=== PATIENT | male | born 1985 | race African-American/Black ===

== ENCOUNTER 2022-10-18 15:39 | Emergency (ER) | payer OTHER ==
--- OUTSIDE RECORDS SUMMARY | 2022-10-18 15:42 | XMS REPORT | Continuity of Care Document ---
:1985 Author Organization [facility] t Address [address] [place] [address] Care Team Providers Name Role Phone PCP, PATIENT DOES NOT HAVE A Primary Care Physician Lashonda Marinelli RN Attending Clinician Unavailable ZONIA SCHILLING Attending Clinician Unavailable Tonie AMIN, Zonia Attending Clinician ZONIA SCHILLING Admitting Clinician Unavailable Zonia Schilling MD Admitting Clinician Payers Payer Name Policy Type Policy Number Effective Date Expiration Date S ource Problems Condition Condition Condition Status Onset Resolution Last Treating Co mments Source Name Details Category Date Date Treatment Clinician Date Obesity Obesity Disease Active Univers (BMI (BMI 2-02 ity of 30-39.9) 30-39.9) 00:00: [place] 00 Medical Branch Pneumonia Pneumonia Disease Active Uni vers due to due to 2-02 ity of Streptococ St[place]ococ [place] Allergies, Adverse Reactions, Alerts Allergy Allergy Status Severity Reaction(s) Onset Inactive Treating Comm ents Source Name Type Date Date Clinician NO KNOWN Drug Active Univers ALLERGIE Class ity of [facility] [place] [facility] Social History Social Habit Start Date Stop Date Quantity Comments Source History SDOH Social Unive rsity of [facility] Med ical Together Branch History SDOH Social Unive rsity of [facility] Branch History SDOH Social Unive rsity of [facility] Medical Membership Branch History SDOH Social Unive rsity of [facility] Medical Meetings Branch History of tobacco Passive smoker Un iversity of use [facility] Branch History SDOH 2022-10-15 2022-10-15 0 University o f Alcohol Std Drinks 00:00:00 00:00:00 [place] [facility] History SDOH 2022-10-15 2022-10-15 1 University o f Alcohol Binge 00:00:00 00:00:00 [place] [facility] History SDOH Social 2022-10-15 2022-10-15 5 Unive rsity of Connections Phone 00:00:00 00:00:00 [facility] edical Branch History SDOH Social 2022-10-15 2022-10-15 7 Unive rsity of Connections Living 00:00:00 00:00:00 [place] [facility] History SDOH 2022-10-15 2022-10-15 5 University o f Physical Activity 00:00:00 00:00:00 [facility] edical DPW Branch History SDOH 2022-10-15 2022-10-15 4 University o f Physical Activity 00:00:00 00:00:00 [facility] edical MPS Branch History SDOH 2022-10-15 2022-10-15 5 University o f Financial 00:00:00 00:00:00 [place] [facility] History SDOH Food 2022-10-15 2022-10-15 1 Univers ity of Worry 00:00:00 00:00:00 [place] [facility] History SDOH Food 2022-10-15 2022-10-15 1 Univers ity of Scarcity 00:00:00 00:00:00 [place] [facility] History SDOH 2022-10-15 2022-10-15 2 University o f Transport Med 00:00:00 00:00:00 [place] [facility] History SDOH 2022-10-15 2022-10-15 2 University o f Transport Non-Med 00:00:00 00:00:00 [facility] edical Branch Alcohol intake 2022-10-15 2022-10-15 Ex-drinker University of 00:00:00 00:00:00 (finding) [place] [facility] History SDOH 2022-10-15 2022-10-15 1 University o f Alcohol Frequency 00:00:00 00:00:00 [facility] edical Branch Exposure to 2022-10-04 2022-10-14 Not sure University of SARS-CoV-2 (event) 00:00:00 23:33:00 [facility] Tobacco use and 2022-10-14 2022-10-14 Smokeless Universit y of exposure 00:00:00 00:00:00 tobacco non-user [facility] Sex Ass[birth year] Universit y of 00:00:00 00:00:00 [facility] Smoking Status Start Date Stop Date Source Ex-smoker 2022-10-14 00:00:00 2022-10-14 00:00:00 [facility] Medications Ordered Filled Start Stop Current Ordering Indication Dosage Frequency Signature Comments Components Source Medication Medication Date Date Medication? Clinician (SIG) Name Name amLODIPine 2022- Yes [id number] 10mg Take 1 Univers 10 mg 10-17-08 tablet by ity of tablet 00:00: 05:59 mouth in [place] 00 :00 [facility] for 30 days. losartan 50 2022- Yes [id number] 50mg Take 1 Univers mg tablet 10-17-08 tablet by ity of 00:00: 05:59 mouth in [place] 00 :00 [facility] for 30 days. amLODIPine 2022- Yes [id number] 10mg Take 1 Univers 10 mg 10-17-08 tablet by ity of tablet 00:00: 05:59 mouth in [place] 00 :00 [facility] for 30 days. losartan 50 2022- Yes [id number] 50mg Take 1 Univers mg tablet 10-17-08 tablet by ity of 00:00: 05:59 mouth in [place] 00 :00 [facility] for 30 days. amLODIPine 2022- Yes [id number] 10mg Take 1 Univers 10 mg 10-17-08 tablet by ity of tablet 00:00: 05:59 mouth in [place] 00 :00 [facility] for 30 days. losartan 50 2022- Yes [id number] 50mg Take 1 Univers mg tablet 10-17-08 tablet by ity of 00:00: 05:59 mouth in [place] 00 :00 [facility] for 30 days. remdesivir 2022- Yes 100mg 100 mg, IV Univers 100 mg in 10-1608 Infusion, ity of NaCl 0.9% 22:00: 21:59 DAILY AT [facility] as (NS) 100 mL 00 :00 1600, 4 Medic al MINI-BAG doses, Branch First dose on [facility] 10/16/22 at 1600, Last dose on Tue10/19/22 at 1600, Administer over 60 Minutes, 100 mL
Is the patient mechanical ly ventilated ? NO amLODIPine Yes 10mg 10 mg, Unive rs (NORVASC) 2-04 Oral, ity of tablet 10 15:00: DAILY, [place] mg 00 First dose Medical (after Branch last modificati on) on [facility] 10/16/22 at 0900, Until Discontinu ed, Routine losartan Yes 50mg 50 mg, Univers (COZAAR) 2-04 Oral, ity of tablet 50 14:30: DAILY, [place] mg 00 First dose Medical on [facility] 10/16/22 at 0830, Until Discontinu ed, Routine acetaminoph Yes 650mg 650 mg, Un sherice en 2-04 Oral, ity of (TYLENOL) 14:28: Q6HPRN, [place] tablet 650 54 Starting Medic al mg on [facility] 10/16/22 at 0828, Until Discontinu ed, Routine, Pain (scale 1-3) ALBUTEROL Yes Inhale as Uni vers INHALE 2-04 needed. ity of 14:20: [address] ALBUTEROL Yes Inhale as Uni vers INHALE 2-04 needed. ity of 14:20: [address] ALBUTEROL 0 Yes Inhale as Uni vers INHALE 2-04 needed. ity of 14:20: [address] lactobacill 2022- Yes [id number] .5mg Take 1 Univers us 2- 02-15 tablet by ity of acidophilus 00:00: 05:59 [place] 00 :00 the Medical morning Branch and 1 tablet in the evening. Do all this for 10 days. lactobacill 0 2022- Yes [id number] .5mg Take 1 Univers us 2- 02-15 tablet by ity of acidophilus 00:00: 05:59 [place] 00 :00 the Medical morning Branch and 1 tablet in the evening. Do all this for 10 days. lactobacill 2022- Yes [id number] .5mg Take 1 Univers us 2- 02-15 tablet by ity of acidophilus 00:00: 05:59 [place] 00 :00 the Medical morning Branch and 1 tablet in the evening. Do all this for 10 days. levoFLOXaci 3-0 202- Yes [id number] 750mg Take 1 Univers n 2- 02-10 tablet by ity of (LEVAQUIN) 00:00: 05:59 mouth [place] 750 mg 00 :00 every 24 Medical tablet ([facility] ur) hours for 5 days. levoFLOXaci 202-0 202- Yes [id number] 750mg Take 1 Univers n 2- 02-10 tablet by ity of (LEVAQUIN) 00:00: 05:59 mouth [place] 750 mg 00 :00 every 24 Medical tablet ([facility] Branch ur) hours for 5 days. levoFLOXaci 2022-0 2022- Yes [id number] 750mg Take 1 Univers n 2-10 tablet by ity of (LEVAQUIN) 00:00: 05:59 mouth [place] 750 mg 00 :00 every 24 Medical tablet ([facility] Branch ur) hours for 5 days. amLODIPine 2022-0 2022- No 5mg 5 mg, Unive rs (NORVASC) 10-15- Oral, ity of tablet 5 mg 23:00: 22:38 ONCE, 1 [place] 00 [place] dose, On Medical Tue10/15/22 Branch at 1700, Routine hydralAZINE Yes 10mg 10 mg, Univ ers (APRESOLINE 2-03 Slow IV ity o f ) injection 22:06: Push, [place] 10 mg 32 Q6HPRN, Medical Starting Branch on Tue10/15/22 at 1606, Until Discontinu ed, STAT, DBP=>100; SBP=>160 amLODIPine 2022-0 2022- No 5mg 5 mg, Unive rs (NORVASC) 10-15-03 Oral, ity of tablet 5 mg 16:45: 22:05 DAILY, [place] 00 :41 First dose Medical on Tue Branch 10/15/22 at 1045, Until Discontinu ed, Routine codeine-gua 2022-0 Yes 10mL 10 mL, Univ ers ifenesin 2-03 Oral, ity of (ROBITUSSIN 16:38: Q6HPRN, [place] AC) 10-100 03 Starting Medic al mg/5 mL on Fri Branch oral 10/15/22 at solution 10 1038, mL Until Discontinu ed, Routine, Cough piperacilli 2023-0 2023- Yes 3.375g 3.375 g, Univers n-tazobacta 10-15-13 IV ity of m (ZOSYN) 16:00: 15:59 [place], [place] 3.375 g in 00 :00 Q8H ABX, Medic al NaCl 0.9% 30 doses, Branc h (NS) 50 mL First dose MINI-BAG on Tue10/15/22 at 1000, Last dose on Tue10/25/22 at 0200, Administer over 4 Hours, 50 mL
Reas on for Anti-Infec tive: Empiric Therapy for Suspected Infection< br>Empiric Therapy Site: Respirator y
Durat ion of therapy: 5 days lactobacill 2022-0 Yes .5mg 0.5 mg, Uni vers us 2-03 Oral, BID, ity of acidophilus 14:00: First dose [place] tablet 0.5 00 on Fri Medical mg 10/15/22 at Branch 0800, Until Discontinu ed, Routine docusate 2022-0 Yes 100mg 100 mg, Unive rs (COLACE) 2-03 Oral, BID, ity o f capsule 100 14:00: First dose [place] mg 00 on Fri Medical 10/15/22 at Branch 0800, Until Discontinu ed, Routine piperacilli 2023-0 2023- No 4.5g 4.5 g, IV Univers n-tazobacta 10-15- Piggyback, i ty of m (ZOSYN) 08:15: 10:37 ONCE, 1 [place] 4.5 g in 00 :15 dose, On Medical NaCl 0.9% [facility] 10/15/22 Bran ch (NS) 50 mL at 0215, MINI-BAG Administer over 30 Minutes, 50 mL
Reas on for Anti-Infec tive: Empiric Therapy for Suspected Infection< br>Empiric Therapy Site: Respirator y
Durat ion of therapy: 5 days ipratropium 3-0 Yes 3mL 3 mL, Unive rs -albuteroL 2-03 Inhalation ity of (DUONEB) 07:30: , QID, [place] 0.5 mg-3 00 First dose Medic al mg(2.5 mg on Fri Branch base)/3 mL 10/15/22 at nebulizer 0130, solution 3 Until mL Discontinu ed, Routine NaCl 0.9% 2022- No 1000mL at 100 Uni vers (NS) IV 203 02-03 mL/hr, IV ity of infusion 07:30: 17:55 Infusion, [place] 1,000 mL 00 :18 CONTINUOUS Medic al , Starting Branch on Tue10/15/22 at 0130, Until 10/15/22 at 1155, Routine ondansetron Yes 4mg 4 mg, Slow Univers (ZOFRAN 10-15 IV Push, ity of (PF)) 05:58: Q6HPRN, [place] injection 4 00 Starting Medi magnolia mg on A[place]e Branch 10/14/22 at 2358, Until Discontinu ed, Routine, Nausea and Vomiting (N/V) traMADOL 2022- No [id number] 100mg Take 2 Un sherice (ULTRAM) 50 12-17 tablets by i ty of mg tablet 00:00: 00:00 mouth [place] 00 :00 every 6 Medical (six) Branch hours as needed (severe pain, alternate with ibuprofen) . ibuprofen 2022- No [id number] 800mg Take 1 U nivers 800 mg 12-17 tablet by ity of tablet 00:00: 00:00 mouth [place] 00 :00 every 8 Medical (eight) Branch hours as needed for Pain (scale 1-3) or Pain (scale 4-6). ondansetron 2022- No [id number] 8mg Take 1 Univers (ZOFRAN 12-17 tablet by ity of ODT) 8 mg 00:00: 00:00 mouth [place] disintegrat 00 :00 every 8 Medic al ing tablet (eight) Branch hours as needed for Nausea and Vomiting (N/V). Immunizations Ordered Filled Immunization Date Status Comments [facility] e Immunization Name Name Remdesivir 2022-10-15 Completed [facility] 00:00:00 [facility] Remdesivir 2022-10-15 Completed [facility] 00:00:00 [facility] Remdesivir 2022-10-15 Completed [facility] 00:00:00 [facility] Vital Signs Vital Name Observation Time Observation Value Comments Source Heart rate 2022-10-16 18:00:00 88 /min [facility] Respiratory rate 2022-10-16 18:00:00 17 /min [facility] Oxygen saturation in 2022-10-16 18:00:00 95 /min [facility] Arterial blood by [facility] Pulse oximetry Branch Systolic blood 2022-10-16 17:46:00 149 mm[Hg] Univer sity of pressure [facility] Diastolic blood 2022-10-16 17:46:00 90 mm[Hg] [facility] Body temperature 2022-10-16 17:46:00 36.78 Dacia [facility] Body weight 2022-10-15 09:43:00 128.459 kg [facility] BMI 2022-10-15 09:43:00 39.50 kg/m2 [facility] Body height 2022-10-15 05:37:00 180.3 cm [facility] Procedures Procedure Date / Time Performing Clinician Source Performed XR CHEST 1 VW 2022-10-15 20:51:00 Leah Masters [facility] SODIUM, URINE RANDOM 2022-10-15 20:36:00 Zonia Schilling [facility] PROTEIN CREAT RATIO 2022-10-15 20:36:00 Zonia Schilling [facility] URINE RANDOM [facility] URINE DRUG (IMMUNOASSAY) 2022-10-15 20:36:00 Zonia Schilling [facility] SCREEN URINE CULTURE 2022-10-15 20:35:00 Zonia Schilling [facility] URINALYSIS 2022-10-15 20:35:00 Zonia Schilling [facility] SPUTUM CULTURE 2022-10-15 16:26:00 Zonia Schilling [facility] FREE T3 2022-10-15 16:23:00 Zonia Schilling [facility] BLOOD CULTURE SCREEN 2022-10-15 16:23:00 Zonia Schilling [facility] FREE T4 2022-10-15 16:23:00 Tonie [facility] PNEUMOCOCCAL ANTIGEN 2022-10-15 09:09:00 Tonie gui [facility] N-TERMINAL PRO-BNP 2022-10-15 08:58:00 Tonie [facility] PROCALCITONIN 2022-10-15 08:58:00 Tonie [facility] AC VBG + LACTIC ACID 2022-10-15 08:58:00 Tonie gui [facility] PHOSPHORUS 2022-10-15 08:58:00 Tonie [facility] LACTATE DEHYDROGENASE 2022-10-15 08:58:00 Tonie [facility] CREATINE KINASE 2022-10-15 08:58:00 Tonie [facility] MAGNESIUM 2022-10-15 08:58:00 Tonie [facility] FERRITIN SERUM 2022-10-15 08:58:00 Tonie [facility] C-REACTIVE PROTEIN 2022-10-15 08:58:00 Tonie [facility] TROPONIN I 2022-10-15 08:58:00 Tonie [facility] THYROID STIMULATING 2022-10-15 08:58:00 Tonie gui [facility] HORMONE [facility] COMP. METABOLIC PANEL 2022-10-15 08:58:00 Tonie [facility] ([id number]) [facility] LIPID PANEL 2022-10-15 08:58:00 Tonie [facility] ([id number])(TOTAL [facility] CHOLESTEROL, TRIGLYCERIDES, HDL) SEDIMENTATION RATE 2022-10-15 08:58:00 Tonie [facility] CBC WITH DIFF 2022-10-15 08:58:00 Tonie [facility] GLYCOSYLATED HEMOGLOBIN 2022-10-15 08:58:00 Tonie [facility] (A1C) [facility] Encounters Start End Encounter Admission Attending Care Care Encounter Source Date/Time Date/Time Type Type Clinicians Facility Department ID 2022-10-18 2022-10-18 Transition FEDE Aguero [id number] Univers 00:00:00 00:00:00 of Care Lashonda GUILLEN [id number] it y of YULI [id number] [facility] [id number] [facility] 403 Branch 2022-10-14 2022-10-16 Inpatient U TONIE [facility] [id number] Univers 22:57:00 13:50:00 ADNAN ity [facility] 2022-10-14 2022-10-16 [id number] Univers 22:57:00 13:50:00 Encounter Zonia GIBBS [id number] ity of [facility] [id number] [facility] [id number] [place] [id number] Branch Results Test Description Test Time Test Comments Results Result Comments Source SPUTUM CULTURE 2022-10-16 06:52:32 Test Item Value Reference Range Interpretation Comme nts SPUTUM CULTURE (test code = 622-1) Specimen cellular elements do not represent lower respiratory tract. Specimen rejected for routine bacterial culture. Suggest reorder and recollection. Gram stain (test code = 664-3) Numerous Epithelial cells present [facility] [id number] 18:59:20 Test Item Value Reference Range Interpretation Comments CRP (test code = 0323964369) 7.9 mg/dL <=0.8 H Lab Interpretation (test code = Abnormal 28725-7) [facility]2023-[facility] 17:56:26 Test Item Value Reference Range Interpretation Comments Procalcitonin (test 0.39 ng/mL <=0.07 H code = 6430015875) TRISTON (test code = TRISTON) INTERPRETATION OF PROCALCITONIN RESULTS IN ADULTS >= 18 YEARS OF AGE Initiation and discontinuation of antibiotics on patients with suspected or confirmed Lower Respiratory Tract Infection in Adults >= 18 years of age. + +-------- --------+ + -----+|Procalcitonin |Interpretation ?|Antibiotic ? ? |Considerations ? |ng/mL ? | ?|recommendation | ? + +-------- --------+ + -----+| <0.1 ? | Bacterial ? ? ?| Strongly ? ? ?| ? | ?| infection very | discouraged ? | Overruling: ? | ?| unlikely ? ? ? | ? | ? Clinically unstable ? ? ? + +-------- --------+ + ? High risk for adverse ? ? | <0.25 ?| Bacterial ? ? ?| Discouraged ? | ? outcome ? | ?| infection ? ? ?| ? | ? SEE IMPORTANT NOTE ?| ?| unlikely ? ? ? | ? | ? + +-------- --------+ + -----+| >=0.25 ? ? ? | Bacterial ? ? ?| Encouraged ? ?| ? | ?| infection ? ? ?| ? | ? | ?| likely ? | ? | Consider treatment failure ?+ +------- ---------+ -+ if levels does not decrease | >0.5 ? | Bacterial ? ? ?| Strongly ? ? ?| appropriately ? | ?| infection very | encouraged ? ?| ? | ?| likely ? | ? | ? + +-------- --------+ + -----+ Discontinuation of antibiotics in high-acuity patients with suspected or confirmed sepsis in Adults >= 18 years of age. + +-------- --------+ + -----+|Procalcitonin |Interpretation ?|Antibiotic ? ? |Considerations ? |ng/mL ? | ?|recommendation | ? + +-------- --------+ + -----+| <0.25 ?| Bacterial ? ? ?| Strongly ? ? ?| ? | ?| infection very | discouraged ? | Overruling: ? | ?| unlikely ? ? ? | ? | ? Clinically unstable ? ? ? + +-------- --------+ + ? High risk for adverse ? ? | <0.5 or drop | Bacterial ? ? ?| Discouraged ? | ? outcome ? | >80% from ? ?| infection ? ? ?| ? | ? SEE IMPORTANT NOTE ?| highest PCT ?| unlikely ? ? ? | ? | ? | level ?| ?| ? | ? + +-------- --------+ + -----+| >=0.5 ?| Bacterial ? ? ?| Encouraged ? ?| ? | ?| infection ? ? ?| ? | ? | ?| likely ? | ? | Consider treatment failure ?+ +------- ---------+ -+ if levels does not decrease | >1.0 ? | Bacterial ? ? ?| Strongly ? ? ?| appropriately ? | ?| infection very | encouraged ? ?| ? | ?| likely ? | ? | ? + +-------- --------+ + -----+ Percentage of drop of Procalcitonin calculation for Discontinuation of antibiotics in high-acuity patients with suspected or confirmed sepsis in Adults >= 18 years of age. ? Procalcitonin highest{}-Procalcitonin current{}Delta Procalcitonin = x100% ? Procalcitonin current {} IMPORTANT NOTE: Procalcitonin may be elevated without bacterial infection by physiologic stress related to trauma, gamez, chronic dialysis, metastatic cancer, surgery in the past seven days, malaria, some fungal infections, and some forms of vasculitis. The interpretation algorithm may not apply to patients with immunosuppression (equivalent of >10 mg of prednisone daily), HIV with CD4 cell count < 350 cells/mm3, active malignancy on systemic chemotherapy, solid organ transplant or hematopoietic stem cell transplantation, or hospital acquired pneumonia. Additionally, some clinical trials of procalcitonin have excluded patients with shock requiring vasopressor use, acute respiratory failure requiring mechanical ventilation, or those with known lung abscess/empyema. For further information please refer to:[email or web address] Lab Interpretation Abnormal (test code = 48648-5) [facility] [id number] 17:32:21 Test Item Value Reference Range Interpretation Comments FREE T4 (test code = 1.12 See_Comment [Autom ated message] [id number]) The system [employer] generated this result transmitted ref erence range: 0.78 - 2 .20 ng/dL:. The ref erence range was not u sed to interpret this result as normal/abnor mal. Lab Interpretation (test Normal code = 57939-7) [facility] [id number] 17:31:40 Test Item Value Reference Range Interpretation Comments FREE T3 (test code = 8790221370) 3.05 pg/mL 2.77-5.27 Lab Interpretation (test code = Normal 99112-9) [facility] ([id number])(TOTAL CHOLESTEROL, TRIGLYCERIDES, HDL)2022-10-15 12:26:36 Test Item Value Reference Range Interpretation Comments CHOL (test code = 1204666609) 131 mg/dL 120-200 HDL (test code = 4409398073) 40 mg/dL >=40 L HDLC RATIO (test code = 0739362460) 3.3 <=5.0 TRIG (test code = 9862424600) 90 mg/dL 30-170 LDL CHOL (test code = 83768-0) 73 mg/dL <=160 VLDL (test code = 9720165076) 18 mg/dL 5-60 Lab Interpretation (test code = Abnormal 82529-3) [facility] HospitalFERRITIN [id number] 11:58:14 Test Item Value Reference Range Interpretation Comments FERRITIN (test code = 326.0 ng/mL 18.0-464.0 5501631971) TRISTON (test code = TRISTON) Biotin has been reported to cause a negative bias, interpret results relative to patient's use of biotin. Lab Interpretation (test Normal code = 10243-0) [facility] Hospital[facility]YROID STIMULATING [id number] 11:54:12 Test Item Value Reference Range Interpretation Comments TSH (test code = 0.30 See_Comment L [Automated message] [id number]) The system [employer] generated this result transmitted ref erence range: 0.45 - 4 .70 mIU/L. The refe rence range was not u sed to interpret this result as normal/abnor mal. Lab Interpretation (test Abnormal code = 11340-0) [facility] [id number] 11:35:49 Test Item Value Reference Range Interpretation Comments TROPONIN I (test code = 0.005 ng/mL <=0.034 [id number]) TRISTON (test code = TRISTON) Reference (Normal) Range (defined by the 99th percentile reference limit): <= 0.034 ng/mL Note: Cardiac troponin begins to rise 3-4 hours after the onset of ischemia. Repeat in 4-6 hours if the sample was drawn within 3-4 hours of the onset of the symptom and found normal. Diagnosis of myocardial injury is made with acute changes in cTn concentrations with at least one serial sample above the 99th percentile upper reference limit (URL), taken together with the patient's clinical presentation. Biotin has been reported to cause a negative bias, interpret results relative to patient's use of biotin. Lab Interpretation Normal (test code = 74887-5) [facility]AL [id number] 11:32:32 Test Item Value Reference Range Interpretation Comments NT-proBNP (test code = 18 pg/mL <=125 0244532486) TRISTON (test code = TRISTON) Biotin has been reported to cause a negative bias, interpret results relative to patient's use of biotin. Lab Interpretation (test Normal code = 58007-1) [facility]. METABOLIC PANEL (13193)2022-10-15 11:23:52 Test Item Value Reference Range Interpretation Comments NA (test code = 138 mmol/L 135-145 4094712372) K (test code = 4.3 mmol/L 3.5-5.0 5785866234) CL (test code = 101 mmol/L 98-108 1943261225) CO2 TOTAL (test code = 31 mmol/L 23-31 2180660217) AGAP (test code = 6 2-16 7974923711) BUN (test code = 14 mg/dL 7-23 0334336542) GLUCOSE (test code = 149 mg/dL 70-110 H 4045010418) CREATININE (test code = 1.06 mg/dL 0.60-1.25 0063765168) TOTAL BILI (test code = 0.5 mg/dL 0.1-1.4 0270267769) CALCIUM (test code = 8.3 mg/dL 8.6-10.6 L 0008712974) T PROTEIN (test code = 8.3 g/dL 6.3-8.2 H 1839768010) ALBUMIN (test code = 4.1 g/dL 3.5-5.0 2008188816) ALK PHOS (test code = 79 U/L 34-122 5123565382) ALTv (test code = 50 U/L 5-50 1742-6) AST(SGOT) (test code = 49 U/L 13-40 H 2494329675) eGFR (test code = 78.6 mL/min/1.73m2 6390057576) TRISTON (test code = TRISTON) Association of Glomerular Filtration Rate (GFR) and Staging of Kidney Disease* + --+ --+ ------+| GFR (mL/min/1.73 m2) ?| With Kidney Damage ?| ?Without Kidney Damage+ --------+ --------+ +| ?>90 ?| ?Stage one ?| ? Normal ?+ ---+ ---+ -------+| ?60-89 ?| ?Stage two ?| ? Decreased GFR ? + --+ --+ ------+| ?30-59 ?| ?Stage three ?| ? Stage three ? + --+ --+ ------+| ?15-29 ?| ?Stage four ? | ? Stage four ?+ ---+ ---+ -------+| ?<15 (or dialysis) ? ?| ?Stage five ? | ? Stage five ?+ ---+ ---+ -------+ *Each stage assumes the associated GFR level has been in effect for at least three months. ?Stages 1 to 5, with or without kidney disease, indicate chronic kidney disease. Notes: Determination of stages one and two (with eGFR >59mL/min/1.73 m2) requires estimation of kidney damage for at least three months as defined by structural or functional abnormalities of the kidney, manifested by either:Pathological abnormalities or Markers of kidney damage (including abnormalities in the composition of the blood or urine or abnormalities in imaging tests). Lab Interpretation Abnormal (test code = 66786-3) [facility]:23:52 Test Item Value Reference Range Interpretation Comments MAGNESIUM (test code = 6025863259) 2.1 mg/dL 1.7-2.4 Lab Interpretation (test code = Normal 02945-3) [facility]2023-[facility] 11:23:32 Test Item Value Reference Range Interpretation Comments PHOSPHORUS (test code = 5762799652) 3.5 mg/dL 2.5-5.0 Lab Interpretation (test code = Normal 64705-1) [facility]CREAT[facility] [id number] 11:23:12 Test Item Value Reference Range Interpretation Comments CK (test code = 3736854831) 331 U/L 33-194 H Lab Interpretation (test code = Abnormal 28608-8) [facility]LACT[facility] [id number] 11:01:31 Test Item Value Reference Range Interpretation Comments LDH (test code = 0264489747) 232 U/L 120-246 Lab Interpretation (test code = Normal 84451-3) [facility]SEDIMENTATION [id number] 10:22:24 Test Item Value Reference Range Interpretation Comments ESR (test code = 33 See_Comment H [Automated message] 26023-3) The system [employer] generated this result transmitted ref erence range: 0 - 10 m m/HR. The reference r kelly was not used to interpret this result as normal/abnor mal. Lab Interpretation (test Abnormal code = 58566-6) [facility]GLYC[facility]YLATED HEMOGLOBIN (A1C)2022-10-15 10:03:18 Test Item Value Reference Range Interpretation Comments HGB A1C (test code = 5.7 % 4.0-5.7 4548-4) TRISTON (test code = TRISTON) Reference RangesNormal: <5.7%Prediabetes: 5.7 - 6.4%Diabetes: > 6.5% Lab Interpretation (test Normal code = 36255-9) [facility]CBC WITH [id number] 09:11:56 Test Item Value Reference Range Interpretation Comments WBC (test code = 7.81 See_Comment [Automated 6690-2) message] The sy stem which generated this result transmitted reference range : 4.20 - 10.70 10*3/?L. The reference range was not used to interpret this result as normal/abnormal . RBC (test code = 4.70 See_Comment [Automated 789-8) message] The sy stem which generated this result transmitted reference range : 4.26 - 5.52 10*6/?L. The reference range was not used to interpret this result as normal/abnormal . HGB (test code = 14.1 g/dL 12.2-16.4 718-7) HCT (test code = 42.0 % 38.4-49.3 4544-3) MCV (test code = 89.4 fL 81.7-95.6 787-2) MCH (test code = 30.0 pg 26.1-32.7 785-6) MCHC (test code = 33.6 g/dL 31.2-35.0 786-4) RDW-SD (test code = 40.8 fL 38.5-51.6 87258-5) RDW-CV (test code = 12.4 % 12.1-15.4 788-0) PLT (test code = 176 See_Comment [Automated 777-3) message] The sy stem which generated this result transmitted reference range : 150 - 328 10*3/ ?L. The reference r kelly was not used to interpret this result as normal/abnormal . MPV (test code = 11.5 fL 9.8-13.0 81494-8) NRBC/100 WBC (test 0.0 See_Comment [Automat ed code = 1964048226) message] The system which generated this result transmitted reference range : 0.0 - 10.0 /100 WBCs. The refer ence range was not u sed to interpret th is result as normal/abnormal . NRBC x10^3 (test code See_Comment [Auto mated = [id number]) message] The s ystem which generated this result transmitted reference range : 10*3/?L. The reference range was not used to interpret this result as normal/abnormal . GRAN MAT (NEUT) % 83.9 % (test code = 770-8) IMM GRAN % (test code 0.60 % = 1503520467) LYMPH % (test code = 10.2 % 736-9) MONO % (test code = 5.0 % 5905-5) EOS % (test code = 0.0 % 713-8) BASO % (test code = 0.3 % 706-2) GRAN MAT x10^3(ANC) 6.55 10*3/uL 1.99-6.95 (test code = 2457356969) IMM GRAN x10^3 (test 0.05 10*3/uL 0.00-0.06 code = 9532092964) LYMPH x10^3 (test code 0.80 10*3/uL 1.09-3.23 L = 731-0) MONO x10^3 (test code 0.39 10*3/uL 0.36-1.02 = 742-7) EOS x10^3 (test code = 0.06-0.53 L 711-2) BASO x10^3 (test code 0.01-0.09 = 704-7) Lab Interpretation Abnormal (test code = 24805-0) [facility]"
--- NOTE | 2022-10-18 16:15 | RAD REPORT ---
EXAM DESCRIPTION: [facility]ary Single View10/18/2022 4:08 pm CLINICAL HISTORY: Chest pain COMPARISON: none FINDINGS: Mild to moderate bilateral patchy lung opacities Heart is normal size IMPRESSION: Mild to moderate bilateral patchy lung opacities probably pneumonia
[2022-10-18] MEDS ORDERED: NA CHLORIDE 0.9% 1,000 ML ONE (17:28)
[2022-10-18] MEDS ORDERED: ONDANSETRON 4 MG/2 ML VIAL ONE (17:28)
[2022-10-18] MEDS ORDERED: KETOROLAC 30 MG/ML INJ ONE (17:28)
[2022-10-18 17:30] LABS: Absolute Lymphocytes (CBC) 1.4 K/uL (0.7-4.9); Hematocrit 45.9 % (39.6-49.0); Lymphocytes % 17.7 % (15.3-44.8); MCV 89.5 fL (80-100); MPV 9.7 fL (7.6-11.3); RBC Red Blood Cell Count 5.13 M/uL (4.33-5.43)
[2022-10-18 17:46] LABS: Albumin 3.3 g/dL (3.4-5.0); Bilirubin Total 0.5 mg/dL (0.2-1.0); Potassium 3.8 mmol/L (3.5-5.1); Protein, Total 8.9 g/dL (6.4-8.2)
--- NOTE | 2022-10-18 18:39 | EDPHYS ---
Physician Documentation [facility] Name: Nikita Matos Jr Age: 37 yrs Sex: Male : 1985 Arrival Date: 10/18/2022 Time: 15:41 Bed 15 Private MD: ED Physician Romario Velasquez HPI: 10/18 15:47 This 37 yrs old Black Male presents to ER via Unassigned with complaints of Abdominal kb Pain. 15:47 The patient has not experienced similar symptoms in the past. The patient has been kb recently seen by a physician:. Patient reports he recently had COVID-pneumonia and was hospitalized at [facility], discharged on Tuesday. States he has had a cough for quite some time but today whenever he coughed he had cramping to his abdomen. Denies any pain at rest. States the pain only comes with cough but not every time he coughs.. Historical: - Allergies: 18:36 No Known Allergies; jh5 - Immunization history:: Adult Immunizations up to date. - Social history:: Smoking status: Patient denies any tobacco usage or history of. ROS: 15:47 Constitutional: Negative for fever, chills, and weight loss. kb 15:47 Abdomen/GI: Positive for abdominal pain, Negative for nausea, vomiting, and diarrhea. 15:47 All other systems are negative. Exam: 15:47 Constitutional: This is a well developed, well nourished patient who is awake, alert, kb and in no acute distress. Head/Face: Normocephalic, atraumatic. ENT: Moist Mucous membranes Cardiovascular: Regular rate and rhythm with a normal S1 and S2. No gallops, murmurs, or rubs. No pulse deficits. Respiratory: Respirations even and unlabored. No increased work of breathing. Talking in full sentences Abdomen/GI: Soft, non-tender. No distention. Skin: Warm, dry with normal turgor. Normal color. MS/ Extremity: Pulses equal, no cyanosis. Neurovascular intact. Full, normal range of motion. Neuro: Awake and alert, GCS 15, oriented to person, place, time, and situation. Moves all extremities. Normal gait. Psych: Awake, alert, with orientation to person, place and time. Behavior, mood, and affect are within normal limits. Vital Signs: 16:31 BP 113 / 90; Pulse 78; Resp 26; Temp 97.8; Pulse Ox 98% on R/A; Weight 129.27 kg; ph Height 5 ft. 11 in. (180.34 cm); 16:31 Body Mass Index 39.75 (129.27 kg, 180.34 cm) ph MDM: 15:45 Patient medically screened. kb 15:47 Data reviewed: vital signs, nurses notes. kb 18:37 Differential diagnosis: non-specific abd pain, pneumonia, muscle spasm. Test considered kb but Not performed: CT: CT abd/pelvis considered, but pt has no abd tenderness. Only reports spasms. CT PE considered, but d-dimer wnl. Historians other than the Patient: EMS: [facility]. Counseling: I had a detailed discussion with the patient and/or guardian regarding: the historical points, exam findings, and any diagnostic results supporting the discharge/admit diagnosis, lab results, radiology results, the need for outpatient follow up, a family practitioner, to return to the emergency department if symptoms worsen or persist or if there are any questions or concerns that arise at home. 18:39 ED course: Pt was prescribed antibiotics upon discharge from [facility] on Tuesday. Pt kb states he is taking them, but cannot remember the name of it. . 02 15:46 Order name: CBC with Diff; Complete Time: 17:48 kb 10/18 15:46 Order name: CMP; Complete Time: 17:48 kb 10/18 15:46 Order name: Lipase; Complete Time: 17:48 kb 10/18 16:19 Order name: Blood Culture Adult (2) kb 10/18 16:19 Order name: Lactate w/ 2H reflex if indic.; Complete Time: 17:48 kb 10/18 16:19 Order name: D-Dimer; Complete Time: 17:48 kb 10/18 15:46 Order name: IV Saline Lock; Complete Time: 17:18 kb 10/18 15:46 Order name: Labs collected and sent; Complete Time: 17:18 kb 10/18 15:46 Order name: Chest Single View XRAY; Complete Time: 16:19 kb Administered Medications: 17:31 Drug: NS 0.9% 1000 ml Route: IV; Rate: 1 bolus; Site: right antecubital; jh5 17:31 Drug: TORadol - (ketorolac) 15 mg Route: IVP; Site: right antecubital; [facility] 17:31 Drug: Zofran (Ondansetron) 4 mg Route: IVP; Site: right antecubital; [facility] Disposition Summary: 10/18/22 18:38 Discharge Ordered Location: Home kb Condition: Stable kb Diagnosis - Muscle spasm kb - Pneumonia, unspecified organism kb Followup: kb - With: Emergency Department - When: As needed - Reason: Worsening of condition Followup: kb - With: Private Physician - When: 2 - 3 days - Reason: Recheck today's complaints, Continuance of care, Re-evaluation by your physician Discharge Instructions: - Discharge Summary Sheet kb - Muscle Cramps and Spasms, [id number] kb Forms: - Medication Reconciliation Form kb - Thank You Letter kb - Antibiotic Education kb - Prescription Opioid Use kb Prescriptions: - orphenadrine citrate 100 mg Oral Tablet Sustained Release - take 1 tablet by ORAL route 2 times per day As needed; 20 tablet; Refills: 0, kb Product Selection Permitted Signatures: Dispatcher [employer] Marizol Farr FNP-C FNP-Ckb Rees, Jessica, RN RN [facility]
--- NOTE | 2022-10-18 18:39 | ER ---
Nurse's Notes [facility] Name: Niikta Matos Jr Age: 37 yrs Sex: Male : 1985 Arrival Date: 10/18/2022 Time: 15:41 Bed 15 Private MD: Diagnosis: Muscle spasm;Pneumonia, unspecified organism Presentation: 10/18 16:31 Chief complaint: Patient states: D/C Tuesday from [facility], was admitted for covid ph pneumonia, c/o pain to upper abdomen w/ cough, pt anxious and tachypneic in triage, states that he is having trouble breathing, Spo2 98% RA. Coronavirus screen: Vaccine status: Patient reports being unvaccinated. Ebola Screen: No symptoms or risks identified at this time. Initial Sepsis Screen: Does the patient meet any 2 criteria? No. Patient's initial sepsis screen is negative. Does the patient have a suspected source of infection? No. Patient's initial sepsis screen is negative. Risk Assessment: Do you want to hurt yourself or someone else? Patient reports no desire to harm self or others. Onset of symptoms was October 18, 2022. 16:31 Method Of Arrival: EMS: [facility] 16:31 Acuity: [place] 3 ph Triage Assessment: 18:35 General: Appears in no apparent distress. Behavior is calm, cooperative, appropriate 5 for age. Pain: Complains of pain in abdomen. GI: Reports upper abdominal pain. Historical: - Allergies: 18:36 No Known Allergies; jh5 - Immunization history:: Adult Immunizations up to date. - Social history:: Smoking status: Patient denies any tobacco usage or history of. Screenin:35 [facility] ED Fall Risk Assessment (Adult) History of falling in the last 3 months, 5 including since admission No falls in past 3 months (0 pts) Confusion or Disorientation No (0 pts) Intoxicated or Sedated No (0 pts) Impaired Gait No (0 pts) Mobility Assist Device Used No (0 pt) Altered Elimination No (0 pt) Score/Fall Risk Level 0 - 2 = Low Risk. Abuse screen: Denies threats or abuse. Denies injuries from another. Nutritional screening: No deficits noted. Tuberculosis screening: No symptoms or risk factors identified. Assessment: 18:36 GI: Bowel sounds present X 4 quads. Abd is soft and non tender. jh5 Vital Signs: 16:31 BP 113 / 90; Pulse 78; Resp 26; Temp 97.8; Pulse Ox 98% on R/A; Weight 129.27 kg; ph Height 5 ft. 11 in. (180.34 cm); 16:31 Body Mass Index 39.75 (129.27 kg, 180.34 cm) ph ED Course: 15:41 Patient arrived in ED. rg4 15:45 Marizol Mclain FNP-C is PSYCHIATRICP. kb 15:45 Romario Velasquez MD is Attending Physician. kb 16:09 Chest Single View XRAY In Process Unspecified. EDMS 16:33 Triage completed. ph 16:33 Arm band placed on Patient placed in waiting room, Patient notified of wait time. 17:18 Inserted saline lock: 18 gauge in right antecubital area, using aseptic technique. 5 18:35 Patient has correct armband on for positive identification. Bed in low position. Call [facility] light in reach. Side rails up X 1. 18:35 No provider procedures requiring assistance completed. 5 18:52 Patient did not have IV access during this emergency room visit. 5 Administered Medications: 17:31 Drug: NS 0.9% 1000 ml Route: IV; Rate: 1 bolus; Site: right antecubital; 5 17:31 Drug: TORadol - (ketorolac) 15 mg Route: IVP; Site: right antecubital; jh5 17:31 Drug: Zofran (Ondansetron) 4 mg Route: IVP; Site: right antecubital; [facility] Medication: 18:35 VIS not applicable for this client. [facility] Outcome: 18:38 Discharge ordered by . kb 18:52 Discharged to home ambulatory. 5 18:52 Condition: good 18:52 Discharge instructions given to patient, Instructed on discharge instructions, follow up and referral plans. medication usage, safety practices, Demonstrated understanding of instructions, follow-up care, medications. 18:58 Patient left the ED. [facility] Signatures: Dispatcher [employer] EDMA Marizol Mclain FNP-C FNP-Ckb Hall, Patricia, RN RN ph Garcia, Rubi rg4 Shannan Solorzano RN RN [facility]
[2022-10-18 19:34] VITALS: BP 113/90; TEMP 97.8; O2SAT 98
== END 2022-10-18 18:58 | disposition home or self-care (01) ==
LOC: ER 15:39
DX: M62.838 Other muscle spasm (principal); J18.9 Pneumonia, unspecified organism
CPT/HCPCS: 87040 ×2; 85025; 36415; 85379; 83605; 83690; 80053; 71045; J7030; J2405